=== PATIENT | female | born 1980 | race Caucasian/White ===

== ENCOUNTER 2019-10-15 17:53 | Inpatient (IN) | payer OTHER ==
[~2019-10-15] VITALS: Ht 154.9 cm; Wt 81.0 kg
--- NOTE | 2019-10-15 18:02 | NUR ---
Dr Kwon at the bedside for MSE.
[2019-10-15 18:19] LABS: BASOPHILS # (AUTO) 0.1 K/uL (0.0-8.0); BASOPHILS % (AUTO) 0.7 % (0.0-2.0); EOSINOPHILS # (AUTO) 0.1 K/uL (0.0-0.7); EOSINOPHILS % (AUTO) 1.5 % (0.0-7.0); HEMATOCRIT 39.8 % (31.2-41.9); HEMOGLOBIN 12.4 g/dL (10.9-14.3); LYMPHOCYTES # (AUTO) 3.1 K/uL (20.0-40.0); LYMPHOCYTES % (AUTO) 31.1 % (20.5-51.5); MEAN CORPUSCULAR HEMOGLOBIN 19.5 uug (24.7-32.8); MEAN CORPUSCULAR HGB CONC 31 g/dL (32.3-35.6); MEAN CORPUSCULAR VOLUME 62.7 fL (75.5-95.3); MONOCYTES # (AUTO) 0.6 K/uL (2.0-10.0); NEUTROPHILS % (AUTO) 60.7 % (38.5-71.5); PLATELET COUNT (AUTO) 320 K/uL (179-408); RED BLOOD CELL COUNT(AUTO) 6.35 MIL/uL (3.63-4.92); WHITE BLOOD COUNT (AUTO) 9.9 K/uL (3.8-11.8)
[2019-10-15 18:57] LABS: CREATININE 0.7 mg/dL (0.6-1.3); POTASSIUM 3.8 mmol/L (3.5-5.1)
[2019-10-15] MEDS ORDERED: ASPIRIN 325 MG TABLET ONE (18:57)
[2019-10-15] MEDS ORDERED: ASPIRIN 325 MG TABLET PO ONE (19:00)
[2019-10-15] MEDS ORDERED: PANTOPRAZOLE SODIUM 40 MG TABLET.DR PO ONE ×2 (19:00→19:09)
[2019-10-15 19:27] LABS: *BILIRUBIN,URIN NEGATIVE (NEGATIVE); *CLARITY,URINE CLEAR (CLEAR); *COLOR,URINE YELLOW (YELLOW); *KETONES,URINE NEGATIVE (NEGATIVE); *UROBILINOGEN,URINE 0.2 E.U./dl (NORMAL); LEUKOCYTE ESTERASE ,URINE TRACE (NEGATIVE); NITRITE, URINE NEGATIVE (NEGATIVE); PH,URINE 6.5 (5.0-8.0); UGLUCOSE NEGATIVE (NEGATIVE)
[2019-10-15 19:29] LABS: *BLOOD, URINE NEGATIVE (NEGATIVE)
[2019-10-15 19:30] LABS: BACTERIA,URINE NONE SEEN /HPF (NONE SEEN); SQUAMOUS EPITHELIAL CELL,UR FEW /HPF (NONE SEEN)
[2019-10-15 19:31] LABS: *URINE HCG, QUAL NEGATIVE (NEGATIVE)
[2019-10-15 19:50] LABS: BILIRUBIN,DIRECT 0.1 mg/dL (0.0-0.2); BILIRUBIN,TOTAL 0.3 mg/dL (0.1-1.0); TOTAL PROTEIN, SERUM 8.1 g/dL (6.4-8.2)
[2019-10-15] MEDS ORDERED: SWABABLE VALVE TRANSFER SET EA MC ONE (21:35)
[2019-10-15] MEDS ORDERED: IOHEXOL 350 100 ML INFUS..BTL ONE (21:36)
[2019-10-15] MEDS ORDERED: IV NORMAL SALINE 250 ML IV ONE (21:36)
--- NOTE | 2019-10-15 21:45 | NUR ---
Patient taken to CT scan via gurney in stable condition
--- NOTE | 2019-10-15 22:07 | NUR ---
Patient back from CT scan in stable condition
--- NOTE | 2019-10-15 23:07 | NUR ---
Pt. admitted to Telemetry , under care of Dr. Hicks Belongs List completed
[2019-10-15] MEDS ORDERED: ALPRAZOLAM 0.5 MG TABLET PO PRN (23:15)
[2019-10-15] MEDS ORDERED: ACETAMINOPHEN 325 MG TABLET PO PRN (23:15)
[2019-10-15] MEDS ORDERED: HYDROCODONE/APAP 5-325MG TABLET PO PRN (23:15)
[2019-10-15] MEDS ORDERED: ONDANSETRON 4 MG/2 ML VIAL IV PRN (23:15)
[2019-10-15 23:30] VITALS: BP 118/79
--- NOTE | 2019-10-15 23:30 | NUR ---
RECEIVED PATIENT VIA GURNEY FROM ER. PATIENT IS A/O X4. DENIES ANY CHEST PAIN UPON ADMISSION. PLACED ON TELE SR. VS WNL. ON RA SATING 99%. NO RESP. DISTRESS NOTED. ORIENTED PATIENT TO ROOM AND CALL LIGHT. CALL LIGHT IN REACH. ALL NEEDS ATTENDED. WILL CONTINUE TO MONITOR AND ASSESS.
--- NOTE | 2019-10-16 05:53 | NUR ---
PATIENT ASLEEP IN BED, EASILY AROUSABLE. DENIES PAIN. SLEPT WELL. ON TELE SR. VS WNL. CALL LIGHT IN REACH. ALL NEEDS ATTENDED. WILL CONTINUE TO MONITOR AND ASSESS.
[2019-10-16] MEDS: PANTOPRAZOLE SODIUM 40 MG TABLET.DR PO SCH (06:21)
[2019-10-16 06:46] LABS: BASOPHILS # (AUTO) 0.1 K/uL (0.0-8.0); BASOPHILS % (AUTO) 0.6 % (0.0-2.0); EOSINOPHILS # (AUTO) 0.1 K/uL (0.0-0.7); EOSINOPHILS % (AUTO) 1.5 % (0.0-7.0); HEMOGLOBIN 12.1 g/dL (10.9-14.3); LYMPHOCYTES # (AUTO) 2.9 K/uL (20.0-40.0); LYMPHOCYTES % (AUTO) 32.3 % (20.5-51.5); MEAN CORPUSCULAR HEMOGLOBIN 19.2 uug (24.7-32.8); MEAN CORPUSCULAR HGB CONC 30 g/dL (32.3-35.6); MEAN CORPUSCULAR VOLUME 63.6 fL (75.5-95.3); MONOCYTES # (AUTO) 0.6 K/uL (2.0-10.0); MONOCYTES % (AUTO) 6.5 % (0.0-11.0); NEUTROPHILS # (AUTO) 5.3 K/uL (1.8-8.9); NEUTROPHILS % (AUTO) 59.1 % (38.5-71.5); PLATELET COUNT (AUTO) 315 K/uL (179-408); RED BLOOD CELL COUNT(AUTO) 6.29 MIL/uL (3.63-4.92); WHITE BLOOD COUNT (AUTO) 8.9 K/uL (3.8-11.8)
[2019-10-16 06:57] LABS: BILIRUBIN,TOTAL 0.3 mg/dL (0.2-1.0); CREATININE 0.8 mg/dL (0.6-1.3); MAGNESIUM 2.1 mg/dL (1.8-2.4); PHOSPHOROUS 4.3 mg/dL (2.5-4.9); POTASSIUM 3.4 mmol/L (3.5-5.1)
--- NOTE | 2019-10-16 08:00 | NUR ---
AWAKE ALERT AND ORIENTED X3, DENIES PAIN OR SOB. CONTINUE WITH TELE MONITORING REMAINS SR. OBSERVED
[2019-10-16] MEDS: ASPIRIN 81 MG TAB.CHEW PO SCH (08:46)
[2019-10-16 08:55] LABS: EOSINOPHILS % (MANUAL) 3 % (0-8); LYMPHOCYTES % (MANUAL) 34 % (20-40); MONOCYTES % (MANUAL) 7 % (2-10); NEUTROPHILS % (MANUAL) 56 % (42-75)
[2019-10-16] MEDS ORDERED: POTASSIUM CHLORIDE 20 MEQ TAB.PRT.SR PO ONE (11:45)
[2019-10-16 11:56] VITALS: BP 105/65
--- NOTE | 2019-10-16 12:00 | NUR ---
NO ACUTE CHANGE FROM BASELINE ASSESSMENT
[2019-10-16] MEDS ORDERED: METOPROLOL TARTRATE 25 MG TABLET PO ONE (13:15)
[2019-10-16 15:01] VITALS: BP 101/50
--- NOTE | 2019-10-16 15:17 | NUR ---
SR ON MONITOR DENIES CHEST PAIN
--- NOTE | 2019-10-16 16:22 | NUR ---
TO [facility] FOR CTA VIA AMBULANCE
[2019-10-16 16:23] VITALS: BP 123/88
[2019-10-16] MEDS ORDERED: SWABABLE VALVE TRANSFER SET EA MC ONE (17:10)
[2019-10-16] MEDS ORDERED: IV NORMAL SALINE 250 ML IV ONE (17:10)
[2019-10-16] MEDS ORDERED: IOHEXOL 350 100 ML INFUS..BTL ONE (17:10)
[2019-10-16 20:06] VITALS: BP 118/73
[2019-10-16 23:52] VITALS: BP 104/63
[2019-10-17 04:00] VITALS: BP 102/64
[2019-10-17] MEDS: PANTOPRAZOLE SODIUM 40 MG TABLET.DR PO SCH (06:35)
[2019-10-17 06:47] LABS: CREATININE 0.7 mg/dL (0.6-1.3); POTASSIUM 3.5 mmol/L (3.5-5.1)
--- NOTE | 2019-10-17 07:20 | NUR ---
PT RESTED WELL IN BETWEEN CARE; NO ACUTE DISTRESS; C/O PAIN MEDICATED WITH NORCO; PT REFUSED HER XANAX; KEPT NPO FOR UTS AND CAROTIDS; NEEDS ATTENDED; CONTINUE PLAN OF CARE.
[2019-10-17] MEDS ORDERED: IOHEXOL 350 100 ML INFUS..BTL ONE (07:57)
[2019-10-17] MEDS ORDERED: SWABABLE VALVE TRANSFER SET EA MC ONE (07:57)
[2019-10-17] MEDS ORDERED: IV NORMAL SALINE 250 ML IV ONE (07:58)
--- NOTE | 2019-10-17 08:00 | NUR ---
AWAKE ALERT AND ORIENTED X3 NO SS OF PAIN OR DISTRESS. KEPT NPO FOR CTA CAROTID SR ON MONITOR
[2019-10-17] MEDS: ASPIRIN 81 MG TAB.CHEW PO SCH (08:07)
--- NOTE | 2019-10-17 09:36 | NUR ---
CT CAROTID DONE AWAITING RESULTS
--- NOTE | 2019-10-17 10:56 | NUR ---
SEEN BY DR EAGLE FOR CARDIO FOLLOW-UP SEE NOTES
[2019-10-17 12:00] VITALS: BP 119/66
--- NOTE | 2019-10-17 16:15 | NUR ---
DISCHARGED HOME STABLE UBER BYSELF AFTER SEEN BY DR GALILEO GARCIA. INSTRUCTED TO FOLLOW-UP WITH PCP.
== END 2019-10-17 16:15 | disposition home or self-care (01) | DRG 392 ==
LOC: ER 17:53 → TELE3 22:56
PROVIDERS: ADMIT Internal Medicine
DX: R14.1 Gas pain (principal); J98.11 Atelectasis; E66.9 Obesity, unspecified; Z82.49 Family history of ischemic heart disease and other diseases of the circulatory system; K76.0 Fatty (change of) liver, not elsewhere classified; R79.89 Other specified abnormal findings of blood chemistry
CPT/HCPCS: 36415; 70030-TC; 71045; 71275; 83690; 83735; 84100; 84703; 85025; 87086; 93005; A4663; G0378; J7050; Q9967